=== PATIENT | male | born 1945 ===

== ENCOUNTER 2020-11-23 00:01 | Emergency (ER) | payer OTHER ==
[2020-11-23 00:25] VITALS: TEMP 98.4
--- NOTE | 2020-11-23 00:58 | CT ---
EXAMINATION TYPE: CT brain alin olson DATE OF EXAM: 11/23/2020 COMPARISON: None HISTORY: FALL CT DLP: 1646.60 mGycm Automated exposure control for dose reduction was used. There is cerebral cortical atrophy. There is no mass effect nor midline shift. There is no sign of in tracranial hemorrhage. The calvarium is intact. There is mild prominence of the ventricles. There is some minimal extra-axial calcification on the inner table of the right frontal bone that could be an exostosis. This measures 3 mm in thickness. Cervical vertebra have normal alignment. There is large anterior bridging osteophyte formation from C 2 to C7. There is no compression fracture. Facet joints are intact. I see no focal bone destruction. IMPRESSION: Cerebral atrophy. Mild hydrocephalus. No acute intracranial abnormality. Cervical spondylotic changes with osteophyte formation. No fracture.
--- NOTE | 2020-11-23 01:03 | ED ---
General Adult HPI - General Chief complaint: Fall Stated complaint: Head Injury Time Seen by Provider: 11/23/20 00:14 Source: patient Mode of arrival: wheelchair Limitations: no limitations - History of Present Illness Initial comments: 74-year-old male patient presents to the emergency department today for evaluation after sustaining a fall. Patient states his, numbness to his and missed a step and fell. Patient states he did hit his head. He does take a blood thinning medication is concerned about possible brain bleed. States that he has multiple abrasions on his scalp, knees, and right wrist. Denies any current headache, blurred vision, double vision. Denies any neck or back pain. Denies nausea or vomiting. Denies any difficulty with range of motion of his joints or with ambulation. States his last tetanus vaccine was given a urine affect ago. Did clean the wounds and applied antibiotic cream. - Related Data Allergies Allergy/AdvReac Type Severity Reaction Status Date / Time Sulfa (Sulfonamide Allergy Rash/Hives Verified 11/23/20 00:30 Antibiotics) Review of Systems ROS Statement: Those systems with pertinent positive or pertinent negative responses have been documented in the HPI. ROS Other: All systems not noted in ROS Statement are negative. Past Medical History Past Medical History: Atrial Fibrillation, Diabetes Mellitus History of Any Multi-Drug Resistant Organisms: None Reported Past Surgical History: No Surgical Hx Reported Past Psychological History: No Psychological Hx Reported Smoking Status: Never smoker Past Alcohol Use History: None Reported Past Drug Use History: None Reported General Exam Limitations: no limitations General appearance: alert, in no apparent distress, other (This is a well- developed, well-nourished elderly male patient in no acute distress. Vital signs upon presentation are temperature 98.4F, pulse 100, respirations 20, blood pressure 167/115, pulse ox 99% on room air.) Head exam: Present: other (There are 2 abrasions noted over the left parietal scalp. No active bleeding.) Eye exam: Present: normal appearance, PERRL, EOMI. Absent: scleral icterus, conjunctival injection, nystagmus, periorbital swelling ENT exam: Present: normal exam, normal oropharynx, mucous membranes moist Neck exam: Present: normal inspection, full ROM, other (Nontender, no step-off, no deformity to firm midline palpation of the posterior cervical spine. Full range of motion without pain or limitation.). Absent: tenderness, meningismus, lymphadenopathy Respiratory exam: Present: normal lung sounds bilaterally. Absent: respiratory distress, wheezes, rales, rhonchi, stridor Cardiovascular Exam: Present: regular rate, normal rhythm, normal heart sounds. Absent: systolic murmur, diastolic murmur, rubs, gallop, clicks GI/Abdominal exam: Present: soft, normal bowel sounds. Absent: distended, tenderness, guarding, rebound, rigid Extremities exam: Present: full ROM, normal capillary refill, other (There are multiple small abrasions noted over the left anterior knee and right anterior knee. Small abrasion ulnar aspect of the right wrist. Abrasion noted left extensor elbow. Skin is otherwise pink, warm, dry. Cap refill less than 3 seconds. Radial pulses 2+. DP and PT pulses 2+.). Absent: normal inspection, tenderness, pedal edema, joint swelling, calf tenderness Neurological exam: Present: alert, oriented X3, CN II-XII intact Expanded Speech: Present: fluid speech Cranial nerves: EOM's Intact: Normal Motor strength exam: RUE: 5, LUE: 5, RLE: 5, LLE: 5 Eye Response: (4) open spontaneously Motor Response: (6) obeys commands Verbal Response: (5) oriented [place]appell Total: 15 Psychiatric exam: Present: normal affect, normal mood Skin exam: Present: warm, dry, intact, normal color. Absent: rash Course Vital Signs 11/23/20 11/23/20 00:21 01:17 Temperature 98.4 F Pulse Rate 100 90 Respiratory 20 18 Rate Blood Pressure 167/115 142/102 O2 Sat by Pulse 99 98 Oximetry Medical Decision Making - Medical Decision Making 74-year-old male patient presented for evaluation after experiencing a fall. Physical examination did reveal multiple abrasions over his scalp, knees, elbow. He is neurologically intact with no focal deficits. CT brain C-spine was negative. I did discuss findings and results with him. He'll be discharged to follow up with his primary care physician for recheck in 1-2 days. Return parameters were discussed in detail. He verbalizes understanding and agrees with this plan. Case discussed with my attending Dr. Davis. - Radiology Data Radiology results: report reviewed, image reviewed CT brain C-spine without contrast is obtained. Report reviewed in its entirety. Impression by Dr. Estrada shows cerebral atrophy. Mild hydrocephalus. No acute intracranial abnormality. Cervical spondylotic changes with osteophyte formation. No fracture. Disposition Clinical Impression: Scalp abrasion, Abrasion of left elbow, Abrasion of left knee, Abrasion of right wrist Disposition: HOME SELF-CARE Condition: Good Instructions (If sedation given, give patient instructions): Abrasion (ED) Additional Instructions: Keep wounds clean and dry. Cleanse twice daily. Return for any increased headache, vomiting, or dizziness. Follow up with your primary care physician for recheck in 1-2 days. Return or present to the nearest emergency department for any new, worsening, or concerning symptoms Is patient prescribed a controlled substance at d/c from ED?: No Referrals: None,Stated [Primary Care Provider] - 1-2 days Time of Disposition: 01:03
[2020-11-23 01:18] VITALS: BP 142/102; PULSE 90; RESP 18
== END 2020-11-23 01:17 | disposition home or self-care (01) ==
LOC: EC 00:01
DX: S00.01XA Abrasion of scalp, initial encounter (principal); S50.312A Abrasion of left elbow, initial encounter; S80.212A Abrasion, left knee, initial encounter; S60.811A Abrasion of right wrist, initial encounter; I48.91 Unspecified atrial fibrillation; E11.9 Type 2 diabetes mellitus without complications; Z88.2 Allergy status to sulfonamides; W10.8XXA Fall (on) (from) other stairs and steps, initial encounter
CPT/HCPCS: 70450; 72125; 99283